=== PATIENT | female | born 1970 | race Caucasian/White ===

== ENCOUNTER → 2016-12-10 | Outpatient (CLI) | payer BC ==
[2016-05-11 14:52] VITALS: BP 132/78
[~2016-12-10] MED LIST: ASPI81TA50 PO; FAMC250T PO; MAGN400C PO; MV,C400T PO
--- NOTE | 2016-12-11 14:09 | RAD ---
DATE: 12/10/2016 EXAM: MAMMO CHERRY SCREENING BILATERAL HISTORY: Routine screening COMPARISON: 12/02/2015 This study was interpreted with the benefit of Computerized Aided Detection (CAD). The breast parenchyma is heterogeneously dense, which could reduce sensitivity of mammography. Breast parenchyma level C. FINDINGS: 2-D and 3-D tomosynthesis imaging was performed in CC and MLO projections. No new or enlarging breast densities are seen. No suspicious microcalcifications are evident. IMPRESSION: Stable mammograms without evidence of malignancy. BI-RADS CATEGORY: 2 BENIGN FINDING(S) RECOMMENDED FOLLOW-UP: 12M 12 MONTH FOLLOW-UP PQRS compliance statement: Patient information was entered into a reminder system with a target due date for the next mammogram. Mammography is a sensitive method for finding small breast cancers, but it does not detect them all and is not a substitute for careful clinical examination. A negative mammogram does not negate a clinically suspicious finding and should not result in delay in biopsying a clinically suspicious abnormality. "Our facility is accredited by the [employer] Mammography [employer]."
== END | disposition home or self-care (01) ==
LOC: MAMMO 07:50
PROVIDERS: ATTEND Obstetrics & Gynecology
DX: Z12.31 Encounter for screening mammogram for malignant neoplasm of breast (principal)
CPT/HCPCS: 77063; G0202; 77067

== ENCOUNTER → 2017-12-27 | Outpatient (CLI) | payer BC ==
[2016-05-11 14:52] VITALS: BP 132/78
--- NOTE | 2017-12-27 09:31 | RAD ---
DATE: 12/27/2017 EXAM: MAMMO CHERRY TAPIA, BREAST LEFT HISTORY: Routine screening COMPARISON: 12/10/2016 This study was interpreted with the benefit of Computerized Aided Detection (CAD). The breast parenchyma is heterogeneously dense, which could reduce sensitivity of mammography. Breast parenchyma level C. FINDINGS: 2-D and 3-D tomosynthesis imaging was performed in CC and MLO projections. A BB was placed on the skin surface in the upper inner left breast in the area of palpable concern. No new or enlarging breast densities are seen. Minimal benign type calcifications present. No suspicious microcalcifications have developed. Left breast ultrasound, 12/27/2017: A targeted ultrasound exam of the left breast was performed from the 7:00 to 12:00 locations. Heterogeneous fibroglandular shadows are present. No breast mass or unusual fluid collection is seen. IMPRESSION: 1. Stable mammograms without evidence of malignancy. 2. The targeted left breast ultrasound reveals no abnormality. 3. Ongoing clinical surveillance of any area of palpable concern is suggested. BI-RADS CATEGORY: 2 BENIGN FINDING(S) RECOMMENDED FOLLOW-UP: 12M 12 MONTH FOLLOW-UP PQRS compliance statement: Patient information was entered into a reminder system with a target due date for the next mammogram. Mammography is a sensitive method for finding small breast cancers, but it does not detect them all and is not a substitute for careful clinical examination. A negative mammogram does not negate a clinically suspicious finding and should not result in delay in biopsying a clinically suspicious abnormality. "Our facility is accredited by the [employer] Mammography [employer]."
== END | disposition home or self-care (01) ==
LOC: MAMMO 08:16
PROVIDERS: ATTEND Family Medicine
DX: R92.8 Other abnormal and inconclusive findings on diagnostic imaging of breast (principal); Z88.2 Allergy status to sulfonamides; Z90.710 Acquired absence of both cervix and uterus
CPT/HCPCS: 76641; 77066; G0279; 77062

== ENCOUNTER 2018-01-27 05:39 | Emergency (ER) | payer BC ==
[~2018-01-27] VITALS: Ht 167.6 cm; Wt 77.6 kg
[2018-01-27] MEDS ORDERED: ONDANSETRON ODT 4 MG TAB.RAPDIS PO ONE (06:30)
[2018-01-27] MEDS ORDERED: IV NORMAL SALINE 1,000ML 1,000 ML IV ONE ×2 (06:30→08:30)
--- NOTE | 2018-01-27 06:32 | PHYS DOC ---
Past History Past Medical History: Endometriosis, Other Past Surgical History: Hysterectomy Alcohol Use: None Drug Use: None Adult General Chief Complaint Chief Complaint: ABDOMINAL PAIN HPI HPI 47-year-old female with history of endometriosis presenting to the emergency department today with right-sided abdominal pain. The pain is sharp and shooting. It has been present for approximately 24 hours. She does have a history of abdominal surgeries. She reports decreased flatus. She denies distention of the abdomen. She denies any blood in her stools. She denies nausea or vomiting. The pain is nonradiating moderate and without alleviating factors. Asked medical history, history of endometriosis and herpes Surgical history: Hysterectomy and LEEP Review of systems is negative for nausea vomiting fevers chills. She denies headache neck stiffness or pain. She denies chest pain or shortness of breath. All other review of systems is negative unless otherwise noted in history of present illness. ED course: 47-year-old female presenting to the emergency department today with right-sided abdominal pain. On arrival she is afebrile with a normal heart rate. Saturating well on room air. Her abdomen is soft and nontender. Negative McBurney's point. Negative Nelson sign. No rebound tenderness or guarding. Nondistended. The remainder the exam is unremarkable. Blood work obtained along with CT abdomen and pelvis and ultrasound of right upper quadrant. CT suggests acute appendicitis. White count is elevated. I spoke with Dr. Jimenez who accepts the patient for transfer to [facility] for further evaluation treatment and care. In the interim the patient received IV antibiotics and was nothing by mouth. Review of Systems Review of Systems SEE ABOVE. Current Medications Current Medications Current Medications Medications (Trade) Dose Ordered Sig/Hakan Start Time Stop Time Status Last Admin Dose Admin Fentanyl Citrate (Fentanyl 2ml Vial) 50 mcg PRN Q30MIN PRN 01/27/18 06:30 Ondansetron HCl (Zofran Odt) 4 mg 1X ONCE 01/27/18 06:30 01/27/18 06:31 Sodium Chloride 1,000 ml @ 1,000 mls/hr 1X ONCE 01/27/18 06:30 01/27/18 07:29 Allergies Allergies Allergies Coded Allergies Type Severity Reaction Last Updated Verified Sulfa (Sulfonamide Antibiotics) Allergy Unknown 05/02/16 Yes Physical Exam Physical Exam Constitutional: Well developed, well nourished, no acute distress, non-toxic appearance. [] HENT: Normocephalic, atraumatic, bilateral external ears normal, oropharynx moist, no oral exudates, nose normal. [] Eyes: PERRLA, EOMI, conjunctiva normal, no discharge. [] Neck: Normal range of motion, no tenderness, supple, no stridor. [] Cardiovascular:Heart rate regular rhythm, no murmur [] Lungs & Thorax: Bilateral breath sounds clear to auscultation [] Abdomen: Bowel sounds normal, soft, no tenderness, no masses, no pulsatile masses. [] Skin: Warm, dry, no erythema, no rash. [] Back: No tenderness, no CVA tenderness. [] Extremities: No tenderness, no cyanosis, no clubbing, ROM intact, no edema. [] Neurologic: Alert and oriented X 3, normal motor function, normal sensory function, no focal deficits noted. [] Psychologic: Affect normal, judgement normal, mood normal. [] Current Patient Data Vital Signs Vital Signs Date Time Temp Pulse Resp B/P (MAP) Pulse Ox O2 Delivery O2 Flow Rate FiO2 01/27/18 05:42 98.6 86 18 97 Room Air EKG EKG [] Radiology/Procedures Radiology/Procedures [] Course & Med Decision Making Course & Med Decision Making Pertinent Labs and Imaging studies reviewed. (See chart for details) [] Dragon Disclaimer Dragon Disclaimer This electronic medical record was generated, in whole or in part, using a voice recognition dictation system. Departure Departure: Impression: Primary Impression: Acute appendicitis Disposition: ADMITTED INPATIENT Condition: STABLE Referrals: AMA MARKS MD (PCP) LE MACDONALD MD Jan 27, 2018 06:32
[2018-01-27 06:43] LABS: BASO # 0.1 x10^3/uL (0.0-0.2); BASO % 0 % (0-3); EOS % 0 % (0-3); HEMATOCRIT 40.2 % (36.0-47.0); HEMOGLOBIN 13.4 g/dL (12.0-15.5); LYMPH # 0.9 x10^3/uL (1.0-4.8); LYMPH % 4 % (24-48); MEAN CORPUSCULAR HEMOGLOBIN 32 pg (25-35); MEAN CORPUSCULAR HGB CONC 33 g/dL (31-37); MEAN CORPUSCULAR VOLUME 96 fL (79-100); MONO # 1.3 x10^3/uL (0.0-1.1); MONO % 6 % (0-9); NEUT # 19.3 x10^3uL (1.8-7.7); NEUT % 89 % (31-73); PLATELET COUNT 279 x10^3/uL (140-400); RED BLOOD COUNT 4.17 x10^6/uL (3.50-5.40); RED CELL DISTRIBUTION WIDTH 12.8 % (11.5-14.5); WHITE BLOOD COUNT 21.6 x10^3/uL (4.0-11.0)
[2018-01-27 06:53] LABS: ALBUMIN 3.7 g/dL (3.4-5.0); CALCIUM 9.1 mg/dL (8.5-10.1); CREATININE 0.8 mg/dL (0.6-1.0); DIRECT BILIRUBIN 0.1 mg/dL (0.0-0.2); GFR 77.6; POTASSIUM 3.6 mmol/L (3.5-5.1); TOTAL BILIRUBIN 0.4 mg/dL (0.2-1.0); TOTAL PROTEIN 7.6 g/dL (6.4-8.2)
[2018-01-27 06:53] LABS: BACTERIA,URINE MOD /HPF (0-FEW); BILIRUBIN,URINE NEG (NEG); CLARITY,URINE HAZY; COLOR,URINE YELLOW; GLUCOSE,URINE 250 mg/dL (NEG); NITRITE,URINE NEG (NEG); SQUAMOUS EPITHELIAL CELL,UR MOD /LPF; UROBILINOGEN,URINE 0.2 mg/dL (0.2 mg/dL)
[2018-01-27] MEDS ORDERED: CONTRAST GIVEN MC PRN (07:00)
[2018-01-27] MEDS ORDERED: IOHEXOL 300 MG/ML 75 ML VIAL. IV ONE (07:00)
[2018-01-27 07:37] LABS: % BANDS 4 % (0-9); % LYMPHS 6 % (24-48); % MONOS 4 % (0-10); % SEGS 86 % (35-66); PLT ESTIMATE ADEQUATE (ADEQUATE)
--- NOTE | 2018-01-27 07:50 | RAD ---
CT of the abdomen and pelvis with contrast, 01/27/2018: HISTORY: Right-sided pain Multidetector CT imaging was performed following an IV bolus injection of iodinated contrast material. No hepatic abnormality is seen. The gallbladder is unremarkable. The pancreas shows no abnormality. The spleen is of normal size. The kidneys are unremarkable. There is mild aortic calcific plaquing without evidence of aneurysm. No abdominal or pelvic adenopathy is seen. The appendix is distended and fluid-filled measuring approximately 14 mm in width. It contains several densities compatible with appendicoliths. There is minimal streaky increased density in the adjacent periappendiceal fat. The appearance is that of acute appendicitis. The bowel loops are not dilated. No free fluid or free air is evident in the abdomen or pelvis. IMPRESSION: Acute appendicitis with appendicoliths. PQRS Compliance Statement: One or more of the following individualized dose reduction techniques were utilized for this examination: 1. Automated exposure control 2. Adjustment of the mA and/or kV according to patient size 3. Use of iterative reconstruction technique Electronically signed by: Morsi Mclean MD (01/27/2018 7:47 AM) [facility]
[2018-01-27] MEDS ORDERED: PIP/TAZO PER PHARMACY MC PRN (08:15)
[2018-01-27] MEDS ORDERED: IV NORMAL SALINE 50ML 50 ML ONE (08:19)
[2018-01-27] MEDS ORDERED: PIPERACILLIN/TAZOBACTAM 4.5 GM VIAL IV ONE (08:20)
--- NOTE | 2018-01-27 08:23 | RAD ---
LIMITED ABDOMINAL ULTRASOUND History: Right-sided abdominal pain. Comparison: CT abdomen pelvis January 27, 2018 Procedure: Transabdominal ultrasound images are obtained. Findings: Visualized pancreas is unremarkable. Liver is mildly increased in echogenicity. No focal hepatic masses are identified. Right hepatic lobe measures 16.6 cm in length. Gallbladder has an unremarkable appearance. Common bile duct measures normally at 3 mm in diameter. Right kidney measures 11.0 cm in length. There is no evidence of stone or hydronephrosis. Visualized IVC demonstrates normal caliber. Impression: 1. Mildly echogenic liver, compatible with fatty liver disease. 2. No evidence of gallbladder pathology. Electronically signed by: Lucio Mcbride MD (01/27/2018 8:20 AM) [id number]
[2018-01-27] MEDS ORDERED: PIPERACILLIN/TAZOBACTAM 4.5 GM in IV NORMAL SALINE 50ML 50 ML IV ONE (08:30)
[2018-01-27] MEDS ORDERED: HYDROmorphone PF 1 MG/ML DISP.SYRIN ONE (09:29)
[2018-01-27] MEDS ORDERED: HYDROmorphone PF 1 MG/ML DISP.SYRIN IV ONE (09:30)
[2018-01-27 10:55] VITALS: BP 122/5
== END 2018-01-27 10:55 | disposition other institution (70) ==
LOC: ER 05:39
DX: K35.80 Unspecified acute appendicitis (principal); D72.829 Elevated white blood cell count, unspecified; Z90.710 Acquired absence of both cervix and uterus; Z88.2 Allergy status to sulfonamides
CPT/HCPCS: 36415; 74177; 76705; 80048; 80076; 81001; 83690; 85007; 85025; 87086; 96374; 96375; 96376; 99285; J1170; J2543; J3010; Q0162; Q9967; J7030

== ENCOUNTER → 2018-12-31 | Outpatient (CLI) | payer BC ==
--- NOTE | 2019-01-14 10:14 | RAD ---
DATE: 12/31/2018 EXAM: MAMMO CHERRY SCREENING BILATERAL HISTORY: Routine screening COMPARISON: 12/02/2015, 12/10/2016, and 12/27/2017 mammographic exams This study was interpreted with the benefit of Computerized Aided Detection (CAD). Breast Density: HETERO The breast parenchyma is heterogenously dense, which could reduce sensitivity of mammography. Breast parenchyma level C. FINDINGS: No suspicious calcification, mass, or distortion. IMPRESSION: Stable BI-RADS CATEGORY: 1 NEGATIVE RECOMMENDED FOLLOW-UP: 12M 12 MONTH FOLLOW-UP PQRS compliance statement: Patient information was entered into a reminder system with a target due date in one year for the next mammogram. Mammography is a sensitive method for finding small breast cancers, but it does not detect them all and is not a substitute for careful clinical examination. A negative mammogram does not negate a clinically suspicious finding and should not result in delay in biopsying a clinically suspicious abnormality. "Our facility is accredited by the [employer] Mammography Program."
== END | disposition home or self-care (01) ==
LOC: MAMMO 07:52
PROVIDERS: ATTEND Obstetrics & Gynecology
DX: Z12.31 Encounter for screening mammogram for malignant neoplasm of breast (principal)
CPT/HCPCS: 77063; 77067

== ENCOUNTER → 2020-02-26 | Outpatient (CLI) | payer BC ==
[~2020-02-26] MED LIST changes: -FAMC250T PO; +FAMC250T3 PO
--- NOTE | 2020-02-26 16:08 | RAD ---
DATE: 02/26/2020 2:57 PM EXAM: MAMMO CHERRY SCREENING BILATERAL HISTORY: Screening COMPARISON: December 31, 2018 Bilateral CC and MLO views of the breasts were performed. Bilateral breast tomosynthesis was performed in CC and MLO projections. This study was interpreted with the benefit of Computerized Aided Detection (CAD). FINDINGS: Breast Density: HETERO The breast parenchyma Is heterogeneously dense, which could reduce sensitivity of mammography. Breast parenchyma level C No suspicious masses, microcalcifications or architectural distortion is present to suggest malignancy in either breast. The visualized axillae are unremarkable. IMPRESSION: No mammographic evidence of malignancy. BI-RADS CATEGORY: 1 NEGATIVE RECOMMENDED FOLLOW-UP: 12M 12 MONTH FOLLOW-UP Annual screening mammography is recommended, unless clinically indicated sooner based on symptoms or change in physical exam. PQRS compliance statement: Patient information was entered into a reminder system with a target due date for the next mammogram. Mammography is a sensitive method for finding small breast cancers, but it does not detect them all and is not a substitute for careful clinical examination. A negative mammogram does not negate a clinically suspicious finding and should not result in delay in biopsying a clinically suspicious abnormality. "Our facility is accredited by the [employer] Mammography [employer]."
== END ==
LOC: MAMMO 14:53
PROVIDERS: ATTEND Obstetrics & Gynecology
DX: Z12.31 Encounter for screening mammogram for malignant neoplasm of breast (principal)
CPT/HCPCS: 77063; 77067

== ENCOUNTER → 2021-05-05 | Outpatient (CLI) | payer BC ==
--- NOTE | 2021-05-05 16:47 | RAD ---
Bilateral digital screening 2-D and 3-D (tomosynthesis) mammogram: Reason for examination: Routine screening. Comparison is made to previous study dated 02/26/2020. Bilateral mammograms in CC and oblique projections were obtained with 2-D imaging and 3-D tomosynthes is imaging and reviewed on the workstation. Interpretation was made with the benefit of CAD. Findings: Breast density: Category D. The breasts are extremely dense which lowers sensitivity of mammography. There are no suspicious masses, malignant appearing calcifications or architectural distortion. Impression: No evidence of malignancy. ASSESSMENT: BI-RADS 1. Negative. Recommendations: Routine screening mammograms. This patient's information has been entered into a reminder system for the patient to be notified wit h the results of her examination and a target date for the next mammogram. Your patient's mammogram demonstrates that she has dense breast tissue (breast density category C or D), which could hide abnormalities, and if she has other risk factors for breast cancer that have bee n identified, she might benefit from supplemental screening tests that may be suggested by you as her ordering physician. Dense breast tissue, in and of itself, is a relatively common condition. Therefo re, this information is not provided to cause undue concern, but rather to raise your awareness and t o promote discussion with your patient regarding the presence of other risk factors, in addition to d ense breast tissue. Electronically signed by: Lucy Araujo MD (05/05/2021 4:44 PM) [id number]
== END ==
LOC: MAMMO 14:04
PROVIDERS: ATTEND Physician Assistant Medical
DX: Z12.31 Encounter for screening mammogram for malignant neoplasm of breast (principal)
CPT/HCPCS: 77063; 77067

== ENCOUNTER → 2021-06-05 | Outpatient (CLI) | payer BC ==
--- NOTE | 2021-06-05 10:40 | RAD ---
XR CHEST 2V INDICATION: Cough. COMPARISON STUDY: None. FINDINGS: Lungs: Normal lung volume. No pulmonary mass or consolidation. The tracheobronchial tree and hilar st ructures are normal. Pleura: No pleural effusion or pneumothorax. Heart and Mediastinum: The cardiomediastinal silhouette is normal. The great vessels of the thorax ar e normal. Bones and Soft Tissues: The bones and soft tissues are within normal limits. IMPRESSION: No acute cardiopulmonary process. Electronically signed by: Adarsh Melgar MD (06/05/2021 10:36 AM) [id number]
== END ==
LOC: RAD 09:53
PROVIDERS: ATTEND Physician Assistant Medical
DX: R50.9 Fever, unspecified (principal)
CPT/HCPCS: 71046

== ENCOUNTER → 2021-06-09 | Outpatient (CLI) | payer BC ==
--- NOTE | 2021-06-09 10:01 | RAD ---
INDICATION: Reason: CHRONIC SINUSITIS / Spl. Instructions: / History: . COMPARISON: None. TECHNIQUE: Axial CT images obtained through the face. One or more of the following individualized dose reduction techniques were utilized for this examinat ion: 1. Automated exposure control; 2. Adjustment of the mA and/or kV according to patient size; 3 . Use of iterative reconstruction technique. FINDINGS: Mastoid air cells are well aerated. Sphenoid sinus and ethmoid air cells are well aerated. Frontal sinuses well aerated. Mild mucosal thickening maxillary sinuses but largely aerated. IMPRESSION: * Minimal mucosal thickening in the maxillary sinuses without evidence of sinusitis. Electronically signed by: Mike Shaw MD (06/09/2021 9:59 AM) [id number]
== END ==
LOC: CT 09:29
PROVIDERS: ATTEND Physician Assistant Medical
DX: J34.89 Other specified disorders of nose and nasal sinuses (principal); J32.9 Chronic sinusitis, unspecified
CPT/HCPCS: 70486

== ENCOUNTER → 2021-07-17 | Outpatient (CLI) | payer BC ==
[2021-07-17 11:21] LABS: BASO # 0.1 x10^3/uL (0.0-0.2); BASO % 1 % (0-3); EOS # 0.1 x10^3/uL (0.0-0.7); EOS % 2 % (0-3); HEMATOCRIT 42.5 % (36.0-47.0); HEMOGLOBIN 14.2 g/dL (12.0-15.5); LYMPH # 1.8 x10^3/uL (1.0-4.8); LYMPH % 25 % (24-48); MEAN CORPUSCULAR HEMOGLOBIN 34 pg (25-35); MEAN CORPUSCULAR HGB CONC 33 g/dL (31-37); MEAN CORPUSCULAR VOLUME 103 fL (79-100); MONO # 0.4 x10^3/uL (0.0-1.1); MONO % 5 % (0-9); NEUT % 67 % (31-73); PLATELET COUNT 261 x10^3/uL (140-400); RED BLOOD COUNT 4.13 x10^6/uL (3.50-5.40); RED CELL DISTRIBUTION WIDTH 13.4 % (11.5-14.5); WHITE BLOOD COUNT 7.4 x10^3/uL (4.0-11.0)
[2021-07-17 12:00] LABS: CALCIUM 8.6 mg/dL (8.5-10.1); CREATININE 0.5 mg/dL (0.6-1.0); GFR 131.7; POTASSIUM 3.9 mmol/L (3.5-5.1)
[2021-07-17 12:47] LABS: SEDIMENTATION RATE 1 (0-25)
== END ==
LOC: LAB 10:30
PROVIDERS: ATTEND Physician Assistant Medical
DX: R53.83 Other fatigue (principal); R59.1 Generalized enlarged lymph nodes; R50.9 Fever, unspecified
CPT/HCPCS: 36415; 80048; 85025; 85651; 86617; 86618; 87040